=== PATIENT | male | born 1960 | race Caucasian/White ===

== ENCOUNTER 2022-01-24 16:39 | Emergency (ER) | payer MEDICAID, SELFPAY ==
[2022-01-24 16:42] VITALS: BP 127/101; PULSE 79; RESP 14; TEMP 36.8; O2SAT 97; BMI 21.2
--- NOTE | 2022-01-24 16:55 | EDS_ITS ---
HPI History of Present Illness Chief Complaint: Fall Informant: patient Onset/Context/Timing Onset: Days (1 week ago) Mechanism/Context: Fall (Fall down 13 steps) Location of pain/injuries: Left ankle and Left foot Quality of Pain: Aching and Throbbing Current Severity: Moderate Maximum Severity: Severe Narrative Narrative: Patient presents for evaluation of left ankle injury and chest wall injury after a fall 1 week ago. Patient states that he fell down 13 steps. His left ankle has been significantly swollen and ecchymotic. He has been icing it and taking Aleve. Today he was able to get his shoe back on and was doing some yard work. After doing this he has increased pain and came in for evaluation. He also reports anterior chest wall pain. PFSH PFSH Medical History no medical history no medical history Home Medications NK 01/24/22 [History Last Taken Unknown] Allergy/AdvReac Type Severity Reaction Status Date / Time bee pollen Allergy Anaphylaxis Verified 01/24/22 16:41 meperidine [From Demerol] AdvReac Vomiting Verified 01/24/22 16:41 Social History Smoking Status: Never smoker ROS ROS ED Constitutional Constitutional ED: Denies chills or fever(s) Eyes Eyes: Denies change in vision or discharge from eye(s) ENT ENT ED: Denies discharge from eye(s), rhinorrhea or sore throat Cardiovascular Cardiovascular: Reports chest pain; Denies palpitations Respiratory/Chest Respiratory/Chest: Denies cough or dyspnea Gastrointestinal Gastrointestinal: Denies abdominal pain, diarrhea, nausea or vomiting Genitourinary Genitourinary ED: Denies difficulty urinating or dysuria Musculoskeletal Musculoskeletal: Reports extremity pain; Denies back pain Integumentary Denies Abrasions or rash Neurologic Neurologic: Denies headache(s) or weakness Allergic/Immunologic Allergic/Immunologic ED: Denies lip swelling or urticaria EXAM Physical Exam Const Vital Signs: 01/24/22 16:42 01/24/22 16:55 Temperature 98.2 F Temperature Source Temporal Pulse Rate 79 Respiratory Rate 14 Respiratory Effort Normal Non-Labored Respiratory Depth Normal Respiratory Pattern Normal Blood Pressure 127/101 H Blood Pressure Mean 109 Pulse Ox 97 Oxygen Delivery Method Room Air Room Air Positive well nourished and well developed General Appearance ED: well developed HEENT Reports normocephalic and head/scalp atraumatic Eyes PERRL and EOMs intact bilaterally Neck supple Chest Wall inspection of chest normal Chest Narrative: Anterior chest wall pain. No crepitus. Resp normal respiratory effort and clear to auscultation bilaterally Cardio regular rate and regular rhythm GI normal to inspection, nondistended, normoactive bowel sounds Palpation: soft Back/Spine no CVA tenderness Extremity Extremity Narrative: Dependent ecchymosis noted to the left foot. Mild edema noted over the lateral malleolus of the left ankle. Tenderness noted over both the lateral malleolus as well as the lateral portion of the foot. Good cap refill distally. No tenderness at the knee or hip. Neuro oriented x3 and no sensory deficits noted Sensorium / Orientation: alert Motor Exam: strength 5/5 throughout Psych mental status grossly normal Skin Skin Narrative: Ecchymotic areas as noted above. MDM MDM MDM Narrative Medical decision making narrative: Patient sent for chest x-ray along with left ankle and left foot x-rays. He had taken Aleve this morning. Radiography Diagnostic Testing: Clinical Impression(s) from Imaging Studies Ankle X-Ray 01/24/22 17:00 IMPRESSION: Soft tissue swelling. No evidence of fracture. Electronically Signed: Carli Verde MD at 17:59 EDT Reading Location ID and State: [id number] / Tel , Service support , Chest X-Ray 01/24/22 17:00 IMPRESSION: Normal x-ray examination of the chest. Electronically Signed: Drake Fernandez MD at 17:27 EDT , Foot X-Ray 01/24/22 17:00 IMPRESSION: Normal x-ray examination of the foot. Electronically Signed: Drake Fernandez MD at 17:28 EDT , Treatment and Re-Evaluation Narrative: X-rays per my interpretation reveal no obvious fracture. Radiology interpretation is reviewed. Test results discussed with the patient. He will be placed in an ankle stirrup splint. He will continue to ice and elevate. He will continue Aleve. He will be [facility] to [facility] for primary care establishment. Discharge Plan Triage Chief Complaint: Fall ED Provider: Alma Lisa Dx/Rx/DC Orders Clinical Impression: Fall, Chest wall contusion, Left ankle sprain Instructions: ED Chest Wall Contusion, ED Ankle Sprain (Adult) Prescriptions: No Action NK Primary Care Provider: Care Physician,No Primary Referrals: Saray Serrano MD [Med Staff - [employer] Hel[employer]] - 1-2 Weeks Care Physician,No Primary [Primary Care Provider] - Disposition Disposition: Home, Self Care
--- NOTE | 2022-01-24 17:00 | RAD_ITS ---
STUDY: X-RAY CHEST REASON FOR EXAM: Male, 61 years old. injury TECHNIQUE: PA and lateral views of the chest. COMPARISON: None. FINDINGS: The lungs are clear and expanded. There is no demonstrated pleural abnormality. Normal size heart. Normal mediastinum and marcia. Normal visualized pulmonary arteries. Normal visualized aortic arch and descending thoracic aorta. Normal visualized thoracic spine. Normal visualized ribs, clavicles, and shoulders. There is no demonstrated abnormality of the visualized soft tissue structures of the upper abdomen. RAD/Chest PA and Lateral IMPRESSION: Normal x-ray examination of the chest. Electronically Signed: Drake Fernandez MD at 17:27 EDT ,
--- NOTE | 2022-01-24 17:00 | RAD_ITS ---
STUDY: X-RAY - LEFT FOOT CLINICAL: Male, 61 years old. injury TECHNIQUE: 3 view(s) of the foot. COMPARISON: None. FINDINGS: Normal talus, calcaneus, and tarsal bones. Normal visualized subtalar, talonavicular, calcaneocuboid, tarsal and tarsometatarsal articulations. Normal metatarsi. Normal metatarsophalangeal joint of the great toe. Normal tibial and fibular sesamoid bones. Normal interphalangeal joint of the great toe. Normal phalanges of the great toe. Normal second through fifth metatarsophalangeal joints. Normal interphalangeal joints and phalanges of the lesser toes. The soft tissue structures are unremarkable. RAD/Foot min 3 Views IMPRESSION: Normal x-ray examination of the foot. Electronically Signed: Drake Fernandez MD at 17:28 EDT ,
--- NOTE | 2022-01-24 17:00 | RAD_ITS ---
STUDY: X-RAY - LEFT ANKLE REASON FOR EXAM: Male, 61 years old. injury TECHNIQUE: 3 view(s) of the ankle. COMPARISON: None. FINDINGS: No acute fracture or dislocation. Physeal scar of the lateral malleolus, normal finding. No destructive bone changes. Joint spaces are well-maintained. Normal alignment. Moderate lateral soft tissue swelling. No radiopaque foreign body or soft tissue gas. RAD/Ankle min 3 Views IMPRESSION: Soft tissue swelling. No evidence of fracture. Electronically Signed: Carli Verde MD at 17:59 EDT Reading Location ID and State: [id number] / Tel , Service support ,
== END 2022-01-24 18:15 | disposition home or self-care (01) ==
PROVIDERS: Emergency Provider Emergency Medicine; Visit Provider Emergency Medicine
DX: S20.20XA Contusion of thorax, unspecified, initial encounter (principal); S90.32XA Contusion of left foot, initial encounter; S93.402A Sprain of unspecified ligament of left ankle, initial encounter; W10.9XXA Fall (on) (from) unspecified stairs and steps, initial encounter
CPT/HCPCS: 71046; 73610; 73630; 99283

== ENCOUNTER 2022-08-03 14:50 | Emergency (ER) | payer MEDICAID, SELFPAY ==
[2022-08-03 14:51] VITALS: BP 122/75; PULSE 74; RESP 18; TEMP 36.7; O2SAT 97; BMI 18.3
--- NOTE | 2022-08-03 15:16 | CT_ITS ---
EXAM: CT HEAD WITHOUT INTRAVENOUS CONTRAST CLINICAL INDICATION: head injury, headache TECHNIQUE: Multiple axial images were obtained of the head without intravenous contrast. This CT exam was performed using one or more of the following dose reduction techniques: automated exposure control, adjustment of the mA and/or kV according to patient size, and/or use of iterative reconstruction technique. This report was created using [employer] report generation technology. COMPARISON: None. FINDINGS: BRAIN AND EXTRA-AXIAL SPACES: Unremarkable. No intra- or extra-axial hemorrhage. No evidence of acute infarct. No intracranial mass or mass effect. There is preservation of the lambert/white matter interface. Posterior fossa structures are unremarkable. Ventricles are appropriate for age. No hydrocephalus. Basal cisterns are patent. BONES/JOINTS: Unremarkable. No discrete lytic or blastic abnormalities. SINUSES: Unremarkable as visualized. Clear. MASTOID AIR CELLS: Unremarkable. Clear. ORBITS: Visualized globes, extraocular muscles, optic nerves and retrobulbar fat appear unremarkable. CT/Brain/Head without Contrast IMPRESSION: Negative head/brain CT without intravenous contrast. Electronically Signed: Hever Rao MD at 16:19 [facility] ,
--- NOTE | 2022-08-03 15:22 | EX.ED.VIS.HA ---
HPI History of Present Illness Chief Complaint: Headache Informant: patient Narrative Narrative: Patient is a 61-year-old male that denies any past medical history but does admit to a history of concussion presenting with headache. Patient states he fell a week ago. He states he was using the bathroom and stood up and then fell backwards hitting the back of his head. He remembers falling but does not exactly know why he fell. Denies loss of consciousness. Hit the back of his head. States he did have symptoms localized swelling on the back of his head but that since gone down. He is continued to have a pretty bad headache that he states starts in his forehead and behind his eyes and goes all the way to the back of his head and down to his shoulders. He is concerned that he might have a skull fracture, bleeding around his brain or possibly concussion. He notes that Advil does help with his symptoms. He states he is having a hard time sleeping because it so painful him to lay flat. He states he cannot even brush his hair because his head is so tender. He does have ringing in his ears. States sometimes he gets blurry vision but it is intermittent. He states he has felt confused but when asked to specify says it is more like having a hard time concentrating. He does not take any blood thinners. Denies any other complaints at this time. PFSH PFS Medical History no medical history Home Medications cyclobenzaprine 10 mg tablet 10 mg PO TID PRN Muscle Spasm #20 TABLETS 08/03/22 [Rx Last Taken Unknown] Allergy/AdvReac Type Severity Reaction Status Date / Time bee pollen Allergy Anaphylaxis Verified 01/24/22 16:41 meperidine [From Demerol] AdvReac Vomiting Verified 01/24/22 16:41 Surgical History no surgical history Social History Smoking Status: Never smoker ROS ROS ED Constitutional Constitutional ED: Denies chills or fever(s) Eyes Eyes: Reports blurry vision ENT ENT ED: Denies rhinorrhea or sore throat Cardiovascular Cardiovascular: Denies chest pain Respiratory/Chest Respiratory/Chest: Denies cough Gastrointestinal Gastrointestinal: Reports nausea and vomiting; Denies abdominal pain Musculoskeletal Musculoskeletal: Reports back pain and neck pain; Denies arthralgias or myalgias Integumentary Denies rash Neurologic Neurologic: Reports headache(s); Denies paresthesias or weakness Hematologic/Lymphatic Hematologic/Lymphatic: Denies easy bleeding or easy bruising EXAM Physical Exam Const Vital Signs: 08/03/22 14:51 08/03/22 17:13 Temperature 98.0 F Temperature Source Temporal Pulse Rate 74 Respiratory Rate 18 16 Blood Pressure 122/75 H Blood Pressure Mean 90 Pulse Ox 97 Oxygen Delivery Method Room Air Positive well nourished and well developed General Appearance ED: well developed and NAD HEENT Reports normocephalic, TM's clear and moist mucous membranes atraumatic and tenderness; Negative for temporal artery tenderness Tympanic Membrane ED: Yes TM's clear Eyes PERRL and EOMs intact bilaterally Neck supple, no meningeal signs and no JVD Neck Narrative: Diffuse paraspinal tenderness. No step-off sign. Mildly decreased range of motion secondary to pain Cardio regular rate, regular rhythm and no murmurs GI non-tender and non-distended Neuro oriented x3, CN's II-XII intact bilaterally and no sensory deficits noted Santi Coma Scale: document GCS findings Spontaneous Obeys Commands Oriented 15 Sensorium / Orientation: awake and alert Speech: speech normal Sensory Exam: No sensory level loss detected Motor Exam: strength 5/5 throughout; Negative for general weakness Skin Lesions: no lesions Rashes: no rashes MDM MDM MDM Narrative Medical decision making narrative: Patient evaluated for a closed head injury that occurred earlier in the week and is now having associated headache, intermittent blurry vision, trouble focusing and pretty severe head and neck pain. Differential includes concussion, tension headache, muscle skeletal pain, intracranial hemorrhage and cervical spine/skull fracture. Patient has had improvement of Motrin at home and then his pain comes back. On exam he has a normal neurologic exam but does have a lot of musculoskeletal pain especially in the region of the trapezius bilaterally. Patient is initially given Tylenol and Flexeril for symptom control. I discussed checking lab work given the exact cause of his falls entirely clear even though he denies any loss of consciousness however patient declines and he just wants to make sure there is nothing wrong with his brain. He does not have any fever I do not suspect meningitis. CT of the brain as well as x-ray of the C-spine obtained which do not show any acute process. X-ray independently interpreted by myself as no acute process. He does have degenerative changes with disc base narrowing.On repeat evaluation he does have mild improvement.Patient will be given a dose of IM Toradol and a prescription for Flexeril. He states he still having a pretty massive headache and again is offered lab work as well as an IV to give further medications for his headache but he declines. Patient ambulated out of the ER. Given return precautions. Is encouraged to follow-up with her primary care doctor as well. Patient verbalizes agreement understand this plan. Counseled the symptoms worsen he should return to the emergency room for further evaluation. Patient is acting appropriate in the emergency room and does have capacity to make shared medical decisions. Radiography Diagnostic Testing: Clinical Impression(s) from Imaging Studies Brain CT 08/03/22 15:16 IMPRESSION: Negative head/brain CT without intravenous contrast. Electronically Signed: Hever Rao MD at 16:19 EST , Cervical Spine X-Ray 08/03/22 15:45 IMPRESSION: Degenerative changes with disc space narrowing. There is no acute osseous abnormality. Electronically Signed: Hever Rao MD at 16:05 EST , Discharge Plan Triage Chief Complaint: Headache ED Provider: Lulú Maria Dx/Rx/DC Orders Clinical Impression: Concussion, Closed head injury, Acute tension-type headache Instructions: ED Headache, Tension, ED Head Injury (Adult) Prescriptions: New cyclobenzaprine 10 mg tablet 10 mg PO TID PRN (Reason: Muscle Spasm) Qty: 20 0RF Primary Care Provider: Care Physician,No Primary Referrals: Estrella Dukes DO [Med Staff - Active Staff] - As soon as possible Amanda Paredes [Non-Staff] - As soon as possible Care Physician,No Primary [Primary Care Provider] - Activity Restrictions/Additional Instructions: Your imagining does not show any signs of fracture or bleeding in the brain. Continue to alternate ibuprofen and Tylenol for pain. Follow-up with a primary care doctor. You been given referral to 2 under discharge paperwork. Use heat to your neck as well. Disposition Disposition: Home, Self Care Discharge Date/Time: 08/03/22 17:13
[2022-08-03] MEDS: cycloBENZAPRine HCl 10 MG Tablet PO (15:24)
[2022-08-03] MEDS: Acetaminophen 500 MG Tablet 1000 MG PO (15:24)
--- NOTE | 2022-08-03 15:45 | RAD_ITS ---
EXAM: XR CERVICAL SPINE, 4 OR 5 VIEWS CLINICAL INDICATION: pain, fall TECHNIQUE: Frontal, lateral and bilateral oblique views of the cervical spine. This report was created using [employer] report generation technology. COMPARISON: None. FINDINGS: VERTEBRAE: Unremarkable. Preserved vertebral body height. No acute fracture. No spondylolisthesis. Preservation of the normal cervical lordosis. No significant facet arthropathy. DISC SPACES: There is disc space narrowing at C3-4, C5-6 and C6-7. SOFT TISSUES: Unremarkable. No prevertebral soft tissue widening. LUNG APICES: Clear. RAD/Cerv Spine 2 or 3 Views IMPRESSION: Degenerative changes with disc space narrowing. There is no acute osseous abnormality. Electronically Signed: Hever Rao MD at 16:05 EST ,
[2022-08-03] MEDS: Ketorolac 15 MG/ML Vial IM (17:07)
[2022-08-03 17:13] VITALS: RESP 16
== END 2022-08-03 17:13 | disposition home or self-care (01) ==
PROVIDERS: Emergency Provider Emergency Medicine; Visit Provider Emergency Medicine
DX: S06.0X0A Concussion without loss of consciousness, initial encounter (principal); H93.13 Tinnitus, bilateral; G44.209 Tension-type headache, unspecified, not intractable; M54.9 Dorsalgia, unspecified; M54.2 Cervicalgia; W01.10XA Fall on same level from slipping, tripping and stumbling with subsequent striking against unspecified object, initial encounter
CPT/HCPCS: 70450; 72040; 96372; 99283